=== PATIENT | female | born 1965 | race Caucasian/White ===

== ENCOUNTER 2021-02-07 12:20 | Emergency (ER) | payer OTHER ==
[~2021-02-07] VITALS: Ht 167.6 cm; Wt 88.5 kg
[2021-02-07] MEDS ORDERED: KETO10 PO (13:06)
[2021-02-07] MEDS ORDERED: ONDA4ODT MM (13:06)
== END 2021-02-07 14:30 | disposition home or self-care (01) ==
LOC: ER 12:20
DX: U07.1 COVID-19 (principal); J44.9 Chronic obstructive pulmonary disease, unspecified
CPT/HCPCS: 96374; 96375; 99284-25; J1885; J2405

== ENCOUNTER → 2021-02-19 | Outpatient (CLI) | payer OTHER ==
[~2021-02-19] MED LIST: KETO10 PO; ONDA4ODT MM
[2021-02-19 18:40] LABS: BASOPHILS ABSOLUTE AUTO 0.04 K/mm3 (0.00-0.23); BASOPHILS PERCENT AUTO 0 % (0-2); EOSINOPHILS ABSOLUTE AUTO 0.05 K/mm3 (0.00-0.68); EOSINOPHILS PERCENT AUTO 0 % (0-6); Hematocrit 37.2 % (33.0-51.0); Hemoglobin 11.9 g/dL (11.5-16.0); IMMATURE GRAN ABSOLUTE AUTO 0.07 K/mm3 (0.00-0.10); IMMATURE GRAN PERCENT AUTO 1 % (0-1); LYMPHOCYTES ABSOLUTE AUTO 2.63 K/mm3 (0.84-5.20); LYMPHOCYTES PERCENT AUTO 24 % (21-46); MONOCYTES ABSOLUTE AUTO 0.87 K/mm3 (0.16-1.47); MONOCYTES PERCENT AUTO 8 % (4-13); Mean Corpuscular HGB 29.8 pg (26.0-34.0); Mean Corpuscular Volume 93 fL (80-100); NEUTROPHILS ABSOLUTE AUTO 7.54 K/mm3 (1.96-9.15); NEUTROPHILS PERCENT AUTO 67 % (41-73); Platelet Count 448 K/mm3 (150-400); RDW Coefficient Variation 12.1 % (11.7-14.2); RDW Standard Deviation 41.1 fL (35.1-46.3)
[2021-02-19 19:09] LABS: Alanine Aminotransfer (ALT/SGP 47 U/L (12-78); Albumin, Blood 2.8 g/dL (3.4-5.0); Albumin/Globulin Ratio 0.6 (0.8-1.8); Alk Phos 52 U/L (50-136); Anion Gap 6 mmol/L (6-16); Aspartate Aminotrans (AST/SGOT 25 U/L (12-37); Bilirubin, Total 0.4 mg/dL (0.1-1.0); Blood Urea Nitrogen 21 mg/dL (8-24); Bun/Creatinine Ratio 23.6 (12.0-20.0); CHOL/HDL RATIO 4.7; CO2, Blood 33 mmol/L (21-32); Calcium, Blood 9.9 mg/dL (8.5-10.1); Chloride, Blood 99 mmol/L (98-108); Cholesterol 248 mg/dL (50-200); Creatinine, Blood 0.89 mg/dL (0.40-1.00); Globulin, Blood 4.5 g/dL (2.2-4.0); Glomerular Filtration Rate >60 (60-); Glucose, Blood 93 mg/dL (70-99); HDL Cholesterol 53 mg/dL (>39); Low Density Lipoprotein Chol 159 mg/dL (0-110); Potassium, Blood 3.5 mmol/L (3.5-5.5); Sodium, Blood 138 mmol/L (136-145); Total Protein, Blood 7.3 g/dL (6.4-8.2); Triglycerides 181 mg/dL (30-160); Very Low Density Lipoprot Chol 36 mg/dL (6-32)
== END | disposition home or self-care (01) ==
LOC: LAB 15:20 → LAB SHORT 15:20
PROVIDERS: Family Medicine
DX: Z00.00 Encounter for general adult medical examination without abnormal findings (principal); Z13.6 Encounter for screening for cardiovascular disorders
CPT/HCPCS: 80053; 80061; 85025

== ENCOUNTER → 2021-03-12 | Outpatient (CLI) | payer OTHER ==
[2021-03-14 12:10] LABS: HPV 16 Negative (Negative); HPV 18 Negative (Negative); HPV OTHER HR TYPES Negative (Negative)
== END | disposition home or self-care (01) ==
LOC: LAB SHORT 15:30
PROVIDERS: Family Medicine
DX: Z01.411 Encounter for gynecological examination (general) (routine) with abnormal findings (principal)
CPT/HCPCS: 87624; G0123